=== PATIENT | male | born 1990 | race Two or more races ===

== ENCOUNTER 2023-05-27 03:22 | Emergency (ER) | payer MEDICAID, OTHER ==
[~2023-05-27] VITALS: Ht 172.7 cm; Wt 84.0 kg
[2023-05-27 03:23] VITALS: O2SAT 94
[2023-05-27 05:09] LABS: Basophils # (auto) 0 10 ^3/uL (0-0.2); Basophils % (auto) 0.4 % (0.0-2.0); Eosinophils # (auto) 0 10 ^3/uL (0-0.8); Lymphocytes # (auto) 1.3 10 ^3/uL (0.4-5.4); Neutrophils % (auto) 85.9 % (37.0-80.0)
[2023-05-27 05:10] LABS: Eosinophils % (auto) 0.2 % (0.0-7.0); Hematocrit 52.2 % (41.0-53.0); Hemoglobin 17.5 g/dL (13.5-17.5); Lymphocytes % (auto) 11.6 % (10.0-50.0); Mean Corpuscular Hemoglobin 26.6 pg (28.0-32.0); Mean Corpuscular Hgb Conc. 33.4 g/dL (32.0-36.0); Mean Corpuscular Volume 79.5 fL (80.0-100.0); Monocytes # (auto) 0.2 10 ^3/uL (0-1.3); Monocytes % (auto) 1.9 % (0.0-12.0); Neutrophils # (auto) 9.4 10 ^3/uL (1.6-8.6); Red Blood Cells 6.57 10^6/uL (4.5-5.90); White Blood Cell 10.9 10^3/uL (4.4-10.8)
[2023-05-27 05:26] LABS: Alanine Aminotransferase 61 U/L (7-40); Albumin 4.8 g/dL (3.2-4.8); Alkaline Phosphatase 42 U/L (46-116); Anion Gap 9 (5-15); Aspartate Aminotransferase 33 U/L (13-40); BUN/Creatinine Ratio 8.3 (10.0-20.0); Blood Alcohol 190.6 mg/dL (<10); Blood Urea Nitrogen 9 mg/dL (9-23); Calcium 9.1 mg/dL (8.7-10.4); Carbon Dioxide 24 mmol/L (20-30); Chloride 105 mmol/L (98-107); Glucose 117 mg/dL (74-106); Lipase 57 U/L (12-53); Sodium 138 mmol/L (136-145)
[2023-05-27 05:27] LABS: Bilirubin, Total 0.4 mg/dL (0.2-1.0); Total Protein 7.6 g/dL (5.7-8.2)
[2023-05-27 07:07] LABS: Amphetamine Screen, Urine Neg (NEGATIVE); Barbiturate Scree,Urine Neg (NEGATIVE); Benzodiazephine Screen, Urine Neg (NEGATIVE); Cannabinoid Screen, Urine Neg (NEGATIVE); Cocaine Screen, Urine Neg (NEGATIVE); Opiate Scree,Urine Neg (NEGATIVE); Phencyclidine Screen, Urine Neg (NEGATIVE)
[2023-05-27 11:16] VITALS: BP 108/80; PULSE 81; RESP 16; TEMP 97.9; O2SAT 97
== END 2023-05-27 11:47 | disposition home or self-care (01) ==
LOC: ER 03:22 → EDBD 03:22 → ER 11:47
DX: F41.9 Anxiety disorder, unspecified (principal); F10.129 Alcohol abuse with intoxication, unspecified
CPT/HCPCS: 36415; 71045; 80053; 80307; 80320; 82962; 83690; 83735; 84484; 85025; 93005